=== PATIENT | female | born 1960 | race Caucasian/White ===

== ENCOUNTER → 2016-12-21 | Outpatient (CLI) | payer BC ==
[~2016-12-21] MED LIST: CALCIUM 600 MG1 EACH PO; COLACE100 MG PO; LO-DOSE ASPIRIN81 M1 PO; MAGNESIUM400 M1 PO; MYCOSTATIN 100,60 ML PO; NICODERM CQ1 EAC1 TD; OMEGA-3 SOFTGE1 EACH PO; OMEPRAZOLE40 M1 PO; ONDANSETRON HCL8 MG PO; PROCHLORPERAZIN10 MG PO; RECLAST5 MG/100 M IV; SIMVASTATIN20 MG PO
== END | disposition home or self-care (01) ==
LOC: CDC 10:21
DX: Z01.810 Encounter for preprocedural cardiovascular examination (principal); M75.112 Incomplete rotator cuff tear or rupture of left shoulder, not specified as traumatic; M25.512 Pain in left shoulder; G56.02 Carpal tunnel syndrome, left upper limb
CPT/HCPCS: 93000

== ENCOUNTER 2017-08-28 02:58 | Emergency (ER) | payer BC ==
[~2017-08-28] VITALS: Ht 160 cm; Wt 64.8 kg
[2017-08-28 04:36] LABS: HEMATOCRIT 25.5 % (36.0-46.0); HEMOGLOBIN 8.1 G/DL (11.9-15.5); MCH 24.3 PG (29.0-34.0); MCHC 31.8 G/DL (30.0-36.0); MCV 76.6 FL (83-99); RBC DIS.WIDTH-CV 17.4 % (11.8-14.6); RBC DIS.WIDTH-SD 48.6 % (39-53); RED BLOOD COUNT 3.33 M/uL (3.80-5.20); WHITE BLOOD COUNT 7.5 K/uL (4.1-10.2)
[2017-08-28 04:38] LABS: PLATELET COUNT 522 K/uL (156-360)
[2017-08-28 04:46] LABS: CHLORIDE 103 mEq/L (99-109); POTASSIUM 3.7 mEq/L (3.7-5.4); SODIUM 136 mEq/L (136-147)
[2017-08-28 04:48] LABS: GLUCOSE 129 mg/dL (70-99)
[2017-08-28 04:52] LABS: CREATININE 0.8 mg/dL (0.6-1.3); GFR ESTIMATE (CALCULATED) > 59 mL/min/; UREA NITROGEN (BUN) 14 mg/dL (9-23)
[2017-08-28 05:37] LABS: BASOPHIL (%) 0.4 % (0-1); EOSINOPHIL (%) 0.5 % (0-5); IMMATURE GRANULOCYTE (%) 0.5 % (0.0-0.7); LYMPHOCYTE (%) 7.2 % (15-42); LYMPHOCYTE COUNT 0.5 K/uL (1.0-2.8); MONOCYTE COUNT 0.3 K/uL (0-0.8); NEUTROPHIL (%) 87.4 % (45-76); NEUTROPHIL COUNT 6.5 K/uL (1.8-6.4)
[2017-08-28 05:47] LABS: ALBUMIN 2.9 g/dL (3.2-4.8)
[2017-08-28 05:49] LABS: TOTAL PROTEIN 5.8 g/dL (6.4-8.3)
[2017-08-28 05:51] LABS: TOTAL BILIRUBIN 0.2 mg/dL (0.0-1.0)
[2017-08-28 05:52] LABS: ALKALINE PHOSPHATASE 110 IU/L (3-129)
[2017-08-28 05:55] LABS: ALT (GPT) 33 IU/L (3-49); AST (GOT) 23 IU/L (2-34); DIRECT BILIRUBIN 0.1 mg/dL (0.0-0.3)
[2017-08-28 05:56] LABS: LIPASE 15 U/L (1.0-51.0)
[2017-08-28] MEDS ORDERED: LIDODERM 5% P1 PATCH TD (06:05)
[2017-08-28] MEDS ORDERED: FLEXERIL10 MG PO (06:05)
[2017-08-28] MEDS ORDERED: NORCO 5/3251 TABLET PO (06:05)
[2017-08-28 06:56] VITALS: BP 133/74
[2017-08-29] MEDS ORDERED: PERCOCET 5/31 TABLET PO (10:31)
[2017-08-29] MEDS ORDERED: PREDNISONE50 MG PO (10:31)
== END 2017-08-28 06:57 | disposition home or self-care (01) ==
LOC: EME 02:58
PROVIDERS: Emergency Medicine
DX: M54.42 Lumbago with sciatica, left side (principal); M54.41 Lumbago with sciatica, right side; D64.9 Anemia, unspecified; D47.3 Essential (hemorrhagic) thrombocythemia; Z87.891 Personal history of nicotine dependence; Z85.9 Personal history of malignant neoplasm, unspecified; Z90.49 Acquired absence of other specified parts of digestive tract; Z91.013 Allergy to seafood
CPT/HCPCS: 72131; 80048; 80076; 81003; 83690; 85025; 85027; 99281; 99284

== ENCOUNTER 2017-08-29 07:43 | Emergency (ER) | payer BC ==
[~2017-08-29] VITALS: Ht 160 cm; Wt 64.8 kg
[~2017-08-29 07:43] MED LIST changes: +FLEXERIL10 MG PO; +LIDODERM 5% P1 PATCH TD; +NORCO 5/3251 TABLET PO
[2017-08-29 09:03] LABS: HEMATOCRIT 25.8 % (36.0-46.0); HEMOGLOBIN 8.3 G/DL (11.9-15.5); MCH 24.5 PG (29.0-34.0); MCHC 32.2 G/DL (30.0-36.0); MCV 76.1 FL (83-99); PLATELET COUNT 475 K/uL (156-360); RBC DIS.WIDTH-CV 17.4 % (11.8-14.6); RBC DIS.WIDTH-SD 47.8 % (39-53); RED BLOOD COUNT 3.39 M/uL (3.80-5.20); WHITE BLOOD COUNT 6.6 K/uL (4.1-10.2)
[2017-08-29 09:10] VITALS: BP 119/68
[2017-08-29 09:14] LABS: CHLORIDE 104 mEq/L (99-109); POTASSIUM 3.8 mEq/L (3.7-5.4); SODIUM 139 mEq/L (136-147)
[2017-08-29 09:15] LABS: GLUCOSE 118 mg/dL (70-99)
[2017-08-29 09:19] LABS: CREATININE 0.7 mg/dL (0.6-1.3); GFR ESTIMATE (CALCULATED) > 59 mL/min/
[2017-08-29 09:20] LABS: UREA NITROGEN (BUN) 11 mg/dL (9-23)
[2017-08-29 09:42] LABS: APPEARANCE CLEAR ((CLEAR)); BILIRUBIN NEGATIVE; BLOOD NEGATIVE; COLOR COLORLESS ((YELLOW)); GLUCOSE (STRIP) NEGATIVE; KETONES NEGATIVE; LEUKOCYTES NEGATIVE; NITRITE NEGATIVE; PROTEIN (STRIP) NEGATIVE; SPECIFIC GRAVITY 1.002 (1.000-1.030); UROBILINOGEN 0.2 MG/DL (0.2-1.0)
[2017-08-29] MEDS ORDERED: PERCOCET 5/31 TABLET PO (10:31)
[2017-08-29] MEDS ORDERED: PREDNISONE50 MG PO (10:31)
== END 2017-08-29 11:00 | disposition home or self-care (01) ==
LOC: EME 07:43
PROVIDERS: Physician Assistant
DX: M54.41 Lumbago with sciatica, right side (principal); M54.42 Lumbago with sciatica, left side; R35.0 Frequency of micturition; Z85.819 Personal history of malignant neoplasm of unspecified site of lip, oral cavity, and pharynx; Z92.21 Personal history of antineoplastic chemotherapy; Z90.49 Acquired absence of other specified parts of digestive tract; Z87.891 Personal history of nicotine dependence
CPT/HCPCS: 72100; 80048; 81003; 85027; 99281; 99285